=== PATIENT | female | born 1930 | race Caucasian/White ===

== ENCOUNTER 2016-08-22 17:09 | Emergency (ER) | payer OTHER, MEDICARE ==
[~2016-08-22] VITALS: Ht 167.6 cm; Wt 87.0 kg
[~2016-08-22 17:09] MED LIST: ASPIRIN81 MG PO; LISINOPRIL20 MG PO; LOVASTATIN40 MG PO; MULTI-VIT PO; NORVASC10 MG PO
[2016-08-22] MEDS ORDERED: PERCOCET 5/325M1 TAB PO (20:48)
[2016-08-22 21:25] VITALS: BP 144/78
== END 2016-08-22 21:15 | disposition home or self-care (01) | DRG 563 ==
LOC: ED 17:09
PROC: 2W3DX1Z Immobilization of Left Lower Arm using Splint (ICD-10-PCS; principal; 2016-08-22)
DX: S52.602A Unspecified fracture of lower end of left ulna, initial encounter for closed fracture (principal); V43.52XA Car driver injured in collision with other type car in traffic accident, initial encounter; Y92.411 Interstate highway as the place of occurrence of the external cause